=== PATIENT | male | born 1975 | race Caucasian/White ===

== ENCOUNTER → 2019-09-23 14:25 | Outpatient (CLI) | payer OTHER, SELFPAY ==
--- NOTE | ~2019-09-23 | XR_ITS ---
XR chest 2V DATE: 09/23/2019 14:36 INDICATION: Chest pain, left side. Left arm tingling. TECHNIQUE: PA and lateral views COMPARISON: 08/01/2009 PA and lateral chest FINDINGS: Normal heart size. No hilar or mediastinal enlargement. No pulmonary infiltrate or consolid ation, pleural effusion or pulmonary vascular congestion or pneumothorax. IMPRESSION: Negative chest Reviewed, dictated and finalized at location B. IMPRESSION: Negative chest
== END ==
PROVIDERS: PCP Physician Assistant; Visit Provider Physician Assistant
DX: R07.9 Chest pain, unspecified (principal)
CPT/HCPCS: 71046

== ENCOUNTER → 2020-07-26 12:45 | Outpatient (CLI) | payer OTHER, SELFPAY ==
--- NOTE | ~2020-07-26 | US_ITS ---
EXAMINATION: US soft tissue pelvic EXAM DATE: 07/26/2020 13:19 INDICATION: R10.32 - Left lower quadrant pain. TECHNIQUE: Multiple grayscale and Doppler images of the pelvic soft tissue were obtained (by a techno logist who performed the scan) and subsequently reviewed. There is no prior study for comparison. FINDINGS: There are small bilateral inguinal lymph nodes. Left side of pelvic soft tissue may demonstrate possi ble small abdominal wall defect, small fat-containing hernia. The bladder is unremarkable. IMPRESSION: 1. Possible small left pelvic abdominal wall hernia. 2. Small bilateral inguinal lymph nodes. Reviewed, dictated and finalized at location A.
== END ==
PROVIDERS: PCP Family Medicine; Visit Provider Family Medicine
DX: R10.32 Left lower quadrant pain (principal)
CPT/HCPCS: 76857

== ENCOUNTER → 2021-01-10 16:07 | Outpatient (CLI) | payer OTHER, SELFPAY ==
--- NOTE | ~2021-01-10 | XR_ITS ---
EXAMINATION: XR chest 2V DATE: 01/10/2021 16:25 INDICATION: Cough. TECHNIQUE: Frontal and lateral views of the chest were obtained. COMPARISON: Chest 2 views 09/23/2019 FINDINGS: The chest demonstrates clear lungs without pneumonia, pleural effusion, or pneumothorax. Th e heart size is normal. There is mild chronic anterior wedging of a lower thoracic vertebral body. IMPRESSION: 1. No acute cardiopulmonary disease. Reviewed, dictated and finalized at location A.
== END ==
PROVIDERS: PCP Family Medicine; Visit Provider Family Medicine
DX: R05.9 Cough, unspecified (principal)
CPT/HCPCS: 71046

== ENCOUNTER 2021-02-28 09:37 | Outpatient (CLI) | payer OTHER, SELFPAY ==
--- NOTE | 2021-02-28 13:18 | NEURO_ITS ---
PATIENT NUMBER :[id number] IMPRESSION: # Complains of 5th and 4th finger numbness. # Left ulnar neuropathy mild # No Capral Tunnel Syndrome # Normal needle exam. Nerve Conduction Studies Anti Sensory Summary Table Stim Site NR Peak (ms) P-T Amp (?V) Site1 Site2 Delta-P (ms) Dist (cm) Humberto (m/s) Left Median Anti Sensory (2-3nd Digit) Wrist 2.8 57.6 Wrist 2-3nd Digit 2.8 14.0 50 Wrist 3.0 45.4 Wrist 2-3nd Digit 2.8 14.0 50 Right Median Anti Sensory (2-3nd Digit) Wrist 2.9 56.8 Wrist 2-3nd Digit 2.9 14.0 48 Wrist 2.8 52.6 Wrist 2-3nd Digit 2.9 14.0 48 Left Radial Anti Sensory (Base 1st Digit) Wrist 2.1 33.0 Wrist Base 1st Digit 2.1 0.0 Right Radial Anti Sensory (Base 1st Digit) Wrist 2.8 14.8 Wrist Base 1st Digit 2.8 0.0 Left Ulnar Anti Sensory (5th Digit) Wrist 2.6 41.6 Wrist 5th Digit 2.6 14.0 54 Right Ulnar Anti Sensory (5th Digit) Wrist 2.6 25.5 Wrist 5th Digit 2.6 14.0 54 Motor Summary Table Stim Site NR Onset (ms) O-P Amp (mV) Site1 Site2 Delta-0 (ms) Dist (cm) Humberto (m/s) Left Median Motor (Abd Poll Brev) Wrist 3.0 8.4 Elbow Wrist 5.8 33.0 57 Elbow 8.8 7.0 Right Median Motor (Abd Poll Brev) Wrist 3.1 2.8 Elbow Wrist 5.7 33.0 58 Elbow 8.8 2.2 Left Ulnar Motor (Abd Dig Minimi) Wrist 2.5 4.7 A Elbow Wrist 5.7 33.0 58 A Elbow 8.2 4.0 B Elbow Wrist 4.7 29.0 62 B Elbow 7.2 4.5 Right Ulnar Motor (Abd Dig Minimi) Wrist 2.7 5.1 A Elbow Wrist 5.7 33.0 58 A Elbow 8.4 4.2 F Wave Studies NR F-Lat (ms) L-R F-Lat (ms) Left Median (Mrkrs) (Abd Poll Brev) 29.84 0.62 Right Median (Mrkrs) (Abd Poll Brev) 30.46 0.62 Left Ulnar (Mrkrs) (Abd Dig Min) 30.93 0.01 Right Ulnar (Mrkrs) (Abd Dig Min) 30.94 0.01 EMG Side Muscle Nerve Root Ins Act Fibs Amp Dur Recrt Comment Right 1stDorInt Ulnar C8-T1 Nml Nml Nml Nml Nml Right Ext Indicis Radial (Post Int) C7-8 Nml Nml Nml Nml Nml Right Ext Digitorum Radial (Post Int) C7-8 Nml Nml Nml Nml Nml Right BrachioRad Radial C5-6 Nml Nml Nml Nml Nml Right PronatorTeres Median C6-7 Nml Nml Nml Nml Nml Right Abd Poll Brev Median C8-T1 Nml Nml Nml Nml Nml Left 1stDorInt Ulnar C8-T1 Nml Nml Nml Nml Nml Left Ext Indicis Radial (Post Int) C7-8 Nml Nml Nml Nml Nml Left Ext Digitorum Radial (Post Int) C7-8 Nml Nml Nml Nml Nml Left BrachioRad Radial C5-6 Nml Nml Nml Nml Nml Left PronatorTeres Median C6-7 Nml Nml Nml Nml Nml Left Abd Poll Brev Median C8-T1 Nml Nml Nml Nml Nml MTDD
== END 2021-02-28 09:38 | disposition home or self-care (01) ==
PROVIDERS: PCP Family Medicine; Visit Provider Family Medicine
DX: R20.0 Anesthesia of skin (principal); R53.1 Weakness; G56.22 Lesion of ulnar nerve, left upper limb
CPT/HCPCS: 95886; 95911

== ENCOUNTER → 2022-01-16 16:20 | Outpatient (CLI) | payer OTHER, SELFPAY ==
--- NOTE | ~2022-01-16 | XR_ITS ---
XR chest 2V DATE: 01/16/2022 16:35 INDICATION: Mild anterior wedging of a lower thoracic vertebral body reported on prior chest radiogra ph.. TECHNIQUE: 2 views COMPARISON: 01/10/2021 2 view chest FINDINGS: Normal heart size. No hilar or mediastinal enlargement. No pulmonary infiltrate or consolid ation, pleural effusion or pulmonary vascular congestion or pneumothorax. No suspicious osteolytic or osteoblastic lesions. There is chronic mild loss of height and anterior w edging of T12, stable since 01/10/2021. IMPRESSION: No active cardiopulmonary disease Reviewed, dictated and finalized at location A.
== END ==
PROVIDERS: PCP Family Medicine; Visit Provider Family Medicine
DX: M48.54XA Collapsed vertebra, not elsewhere classified, thoracic region, initial encounter for fracture (principal)
CPT/HCPCS: 71046

== ENCOUNTER 2022-11-08 00:56 | Day surgery (SDC) | payer OTHER, SELFPAY ==
[2022-10-28 12:53] VITALS: BMI 25.4
[2022-11-08 11:15] VITALS: BMI 25.9
[2022-11-08] MEDS: LACTATED RINGERS 1,000 ML 150 ML IV CONT (11:25)
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
[2022-11-08 12:00] VITALS: BP 120/69; PULSE 56; RESP 22; O2SAT 100
[2022-11-08 12:10] VITALS: BP 129/89; PULSE 52; RESP 21; O2SAT 99
[2022-11-08 12:20] VITALS: BP 129/89; PULSE 57; RESP 27; O2SAT 99
== END 2022-11-08 12:32 | disposition home or self-care (01) ==
PROVIDERS: PCP Family Medicine; Visit Provider Internal Medicine Gastroenterology
PROC: 0DJD8ZZ Inspection of Lower Intestinal Tract, Via Natural or Artificial Opening Endoscopic (ICD-10-PCS; CPT 45378; principal; 2022-11-08 12:30)
DX: Z12.11 Encounter for screening for malignant neoplasm of colon (principal); K63.5 Polyp of colon; K64.8 Other hemorrhoids; K62.89 Other specified diseases of anus and rectum; Z87.891 Personal history of nicotine dependence
CPT/HCPCS: 45385; 88305; J2704; J7120

== ENCOUNTER 2023-01-15 01:57 | Day surgery (SDC) | payer OTHER, SELFPAY ==
--- NOTE | 2023-01-07 13:38 | PC.NURSE ---
Report to the Outpatient Waiting Room, entrance under the green pavilion located off [facility], at time _1000 on date 01/15/23. Planned Procedure Time: 1200_. Time changes happen often and if your time is changed the preop area will call you the afternoon before. - You and your visitor will be asked to self-screen and do not enter if you have any COVID symptoms. - A mask is optional within the hospital at this time. Patients may have clear liquids (water, carbonated beverages, clear teas, apple juice) until 3 hours prior to surgery with a maximum of 20 ounces. - No food from midnight until time of surgery - Infants may have breast milk until 4 hours before surgery, formula 6 hours prior to surgery. - Children will be allowed to drink immediately following surgery. If applicable, please bring a bottle or sippy cup to assist with drinking. Juice, water, soda, and popsicles are readily available. For infants on formula, please bring formula the day of surgery. Pacifiers are allowed. Take the following medications with a SIP of water the morning of surgery: __NONE DO NOT STOP ANY OF YOUR OTHER PRESCRIPTION MEDICATIONS PRIOR TO SURGERY ?EXCEPT THE FOLLOWING Medications to discontinue per physician NONE Date to take last dose Please no make-up, nail cook islander, hairspray, perfume, deodorant, or body powder the day of surgery. No jewelry (including any body piercings) or valuables the day of surgery, leave them at home. Please take a shower or bath the night before, or the morning of, surgery with an antibacterial soap. Wear comfortable, loose fitting clothing. Children are encouraged to wear pajamas. - Jewelry must be removed prior to entering the operating room. Rings and piercings that are not removed may be cut off. - The hospital will not accept responsibility for valuables. - Please leave all valuables, including medications, at home the day of surgery. If you are going home after surgery, a licensed wheat combine driver must drive you home. - NO public transportation without another adult if you receive anesthesia. - We recommend that an adult stay with you for 24 hours following discharge. - We also recommend that you do not drive, make important decision, drink alcoholic beverages, or take any drugs that were not prescribed by your health care provider for at least 24 hours after your discharge time. For Pediatric surgeries, we recommend two adults accompany the child home. Follow any additional instructions given to you from your surgeon. If you or anyone in your household have experienced Covid symptoms in the past week, please notify your surgeon or the nurse liaison at the phone number below for possible testing. Telephone instructions given to __PATIENT_and asked if any additional questions and then verbalized understanding. Patient advised to call surgeon office or pre surgery nurse liaison [phone] if any additional questions.
[2023-01-15 10:32] VITALS: BP 132/84; PULSE 62; RESP 18; TEMP 36.6; O2SAT 99
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
--- NOTE | 2023-01-15 11:27 | WPDHPUPDATE1 ---
History and Physical Update Update Date/Time: 01/15/23 11:27 History and Physical has been reviewed, including an updated exam of the patient. There are NO changes in the patient's condition. Risks, benefits, and alternatives have been discussed and questions answered. Patient agrees to proceed with procedure.
[2023-01-15] MEDS: LACTATED RINGERS 1,000 ML 30 ML IV CONT (11:52)
[2023-01-15] MEDS: BUPIVACAINE/EPINEPHRINE 0.5% 50 ML VIAL 20 ML INFILTRATE (12:07)
[2023-01-15] MEDS: ceFAZolin 2 GM/D5W 50 ML 2 GM/50 ML BAG IVPB (12:07)
[2023-01-15 12:47] VITALS: BP 122/81; PULSE 65; RESP 13; TEMP 36.5; O2SAT 100
[2023-01-15 13:00] VITALS: BP 124/79; PULSE 60; RESP 16; O2SAT 100
--- NOTE | 2023-01-15 13:02 | W.PM.PROC2 ---
Procedure Note - Detailed Date of Procedure 01/15/23 Pre-op Diagnosis left chronic perianal abscess Post-op Diagnosis Same Procedure Performed Excisional biopsy left chronic perianal abscess measuring approximately 2 x 2 cm Surgeon Tequila Welsh MD Anesthesia General and Local Indications 47-year-old male presenting to the office with a left chronic perianal abscess, patient reports nonhealing with intermittent episodes of infection and drainage Findings chronic perianal abscess cavity Description of Procedure The patient was taken the operating room and placed in the lithotomy position. After adequate induction of general anesthesia, the patient was prepped and draped in the normal sterile fashion. A time-out was then done to verify patient's identity, as well as the procedure being performed. I began by localizing the area and around this perianal abscess cavity on the left. Once adequately anesthetized, I made an elliptical incision around the abscess cavity including the sinus tract that had previously drained. This incision was taken down to the subcutaneous tissue in the entire cavity was removed in full. The specimen was noted to measure approximately 2 x 2 cm. The specimen will now be sent to pathology for further review. I then irrigated the cavity, no signs of active infection were noted. I then closed the subcutaneous tissue with 3-0 Vicryl suture. The skin was closed with 4-0 Monocryl subcuticular suture. Dermabond was then placed in the wound. The patient tolerated the procedure well and was extubated postoperatively. He will be transferred to the recovery room in stable condition. Estimated Blood Loss 5 Drains No Packing No Pathology Yes Complications No immediate complications Condition Stable Disposition PACU [facility] Billing Surgery - Charge Forward: Surgery Billing
[2023-01-15 13:14] VITALS: BP 122/75; PULSE 61; RESP 16; O2SAT 99
[2023-01-15 13:41] VITALS: BP 118/80; PULSE 58
[2023-01-15 14:20] VITALS: BP 114/70; PULSE 53
== END 2023-01-15 14:35 | disposition home or self-care (01) ==
PROVIDERS: PCP Family Medicine; Visit Provider Surgery
PROC: (CPT 46040; principal; 2023-01-15 12:00)
DX: K61.0 Anal abscess (principal); J45.909 Unspecified asthma, uncomplicated; I10 Essential (primary) hypertension; Z87.891 Personal history of nicotine dependence; Z87.828 Personal history of other (healed) physical injury and trauma; Z80.3 Family history of malignant neoplasm of breast
CPT/HCPCS: 46922; 88305; J0690; J1100; J2250; J2405; J2704; J3010; J7120

== ENCOUNTER 2024-08-18 13:14 | Outpatient (CLI) | payer OTHER, SELFPAY ==
--- NOTE | ~2024-08-18 | US_ITS ---
US soft tissue abdomen Ordering provider: Maureen Santos, [employer]OR [employer] History: . R10.32 - Left lower quadrant pain . Comparison: None. FINDINGS/impression: Small hernia is seen with Valsalva with a defect measuring 0.8 cm in the left lower quadrant. 2 small lymph nodes are seen with the largest measuring 0.8 x 0.4 x 1 cm 0 8 x 0 4 CNM. Reviewed, dictated and finalized at location A.
== END 2024-08-18 13:15 | disposition home or self-care (01) ==
LOC: GOSHIMG 13:15
PROVIDERS: PCP Family Medicine; Visit Provider Nurse Practitioner
DX: K40.90 Unilateral inguinal hernia, without obstruction or gangrene, not specified as recurrent (principal); R59.0 Localized enlarged lymph nodes
CPT/HCPCS: 76705

== ENCOUNTER 2024-09-22 12:46 | Outpatient (CLI) | payer OTHER, SELFPAY ==
--- NOTE | ~2024-09-22 | US_ITS ---
EXAMINATION: US soft tissue abdomen DATE: 09/22/2024 13:03 INDICATION: Unspecified abdominal hernia without obstruction TECHNIQUE: Multiple grayscale and Doppler ultrasound images of the left inguinal region were obtained . COMPARISON: 08/18/2024 and 07/26/2020 FINDINGS: No significant interval change in a small left inguinal hernia with some movement of the herniated fa t with Valsalva. The orifice of the hernia measures approximately 1 cm in diameter. No evident hernia jessica bowel. There are couple small normal sized and appearing left inguinal lymph nodes. IMPRESSION: 1. No interval change in a small fat-containing left inguinal hernia. Reviewed, dictated and finalized at location A.
== END 2024-09-22 12:47 | disposition home or self-care (01) ==
LOC: GOSHIMG 12:46
PROVIDERS: PCP Family Medicine; Visit Provider Nurse Practitioner
DX: K40.90 Unilateral inguinal hernia, without obstruction or gangrene, not specified as recurrent (principal)
CPT/HCPCS: 76705

== ENCOUNTER 2024-10-08 09:58 | Outpatient (CLI) | payer OTHER, SELFPAY ==
--- NOTE | ~2024-10-08 | XR_ITS ---
XR shoulder RT min 2V 10/08/2024 10:07 Indication: Chronic right shoulder pain for 3-4, Procedure: No prior studies for comparison. Comparison: No prior studies for comparison. 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 No fracture, subluxation or dislocation. No significant soft tissue abnormality. No foreign bodies. Impression: 1: No acute bone or joint abnormality. Reviewed, dictated and finalized at location A. Impression: 1: No acute bone or joint abnormality.
== END 2024-10-08 09:59 | disposition home or self-care (01) ==
LOC: GOSHIMG 09:59
PROVIDERS: PCP Family Medicine; Visit Provider Family Medicine
DX: M25.511 Pain in right shoulder (principal)
CPT/HCPCS: 73030